=== PATIENT | female | born 1935 | race Hispanic/Latino ===

== ENCOUNTER → 2025-06-03 | Outpatient (CLI) | payer OTHER ==
--- NOTE | 2025-06-03 23:35 | HMCIMG ---
US PELVIC NON-OB LIMITED CLINICAL INDICATION: Urinary incontinence. COMPARISON: None available. TECHNIQUE: Real-time grayscale and Doppler ultrasound evaluation of the urinary bladder was performed. FINDINGS: Urinary Bladder: The urinary bladder is adequately distended on pre-void imaging. Pre-void bladder volume measures approximately 190.9 cc. The bladder wall measures approximately 3 mm in thickness and appears smooth and regular without focal thickening. No intraluminal calculus, mass, trabeculation, or debris is identified. Post-void imaging demonstrates a residual bladder volume of approximately 15.2 cc. No sonographic evidence of bladder outlet obstruction or cystitis is seen. IMPRESSION: 1. Normal sonographic appearance of the urinary bladder with normal bladder wall thickness. 2. Mild post-void residual volume of approximately 15 cc, which is within normal limits and not suggestive of significant urinary retention. RECOMMENDATIONS: No additional imaging is recommended at this time based on ACR Appropriateness Criteria. Clinical correlation with urologic evaluation may be considered if urinary incontinence persists or worsens. /Parminder
== END ==
LOC: RAH 09:38
PROVIDERS: ATTEND Internal Medicine
DX: N32.89 Other specified disorders of bladder (principal); N39.498 Other specified urinary incontinence
CPT/HCPCS: 76857